=== PATIENT | female | born 1955 | race Caucasian/White ===

== ENCOUNTER 2021-09-03 17:09 | Emergency (ER) | payer MEDICARE ==
--- NOTE | 2021-09-03 21:36 | ED ---
General Adult HPI - General Chief complaint: Headache Stated complaint: Sent by DR/Headache Time Seen by Provider: 09/03/21 20:57 Source: patient, RN notes reviewed, old records reviewed Mode of arrival: ambulatory Limitations: no limitations - History of Present Illness Initial comments: 66-year-old well-appearing female alert and oriented 4, presents to the emergency room with complaints of left temporal headache yesterday afternoon around 4:00. Patient states that she went outside for a walk and took some deep breaths and did help with the pain however she could not sleep last night his pain returned. She describes it as a bandlike pressure on the left side of her head. She denies any symptoms on the right side she denies any nausea vomiting or fevers. She states there is no visual problems. She has not had headaches in the past. She does not take any medication on a daily basis. She did contact her primary care doctor who told her to come to the emergency room for evaluation and CAT scan. -: days(s) (1) Location: head (Left temporal) Radiation: non-radiation Severity scale (1-10): 3 Quality: aching, other (Bandlike pressure) Improves with: medication (Robaxin) Worsens with: none Associated Symptoms: denies other symptoms - Related Data Allergies Allergy/AdvReac Type Severity Reaction Status Date / Time bee pollen Allergy Rash/Hives Verified 09/03/21 19:15 Review of Systems ROS Statement: Those systems with pertinent positive or pertinent negative responses have been documented in the HPI. ROS Other: All systems not noted in ROS Statement are negative. Past Medical History Past Medical History: Thyroid Disorder Past Surgical History: Tonsillectomy, Tubal Ligation Past Psychological History: No Psychological Hx Reported Smoking Status: Never smoker Past Alcohol Use History: Daily Past Drug Use History: None Reported General Exam Limitations: no limitations General appearance: alert, in no apparent distress Head exam: Present: atraumatic, normocephalic, normal inspection Eye exam: Present: normal appearance, PERRL, EOMI. Absent: scleral icterus, conjunctival injection, periorbital swelling ENT exam: Present: normal exam, normal oropharynx, mucous membranes moist Neck exam: Present: normal inspection, full ROM. Absent: tenderness, meningismus, lymphadenopathy, thyromegaly Respiratory exam: Present: normal lung sounds bilaterally. Absent: respiratory distress, wheezes, rales, rhonchi, stridor Cardiovascular Exam: Present: regular rate, normal rhythm, normal heart sounds. Absent: systolic murmur, diastolic murmur, rubs, gallop, clicks Neurological exam: Present: alert, oriented X3, CN II-XII intact, normal gait Expanded Patient oriented to: Present: person, place, time Speech: Present: fluid speech Cranial nerves: EOM's Intact: Normal, Gag Reflex: Normal, Tongue Deviation: Normal Cerebellar function: Finger to Nose: Normal, Heel to [place]: Normal Eye Response: (4) open spontaneously Motor Response: (6) obeys commands Verbal Response: (5) oriented [place] Total: 15 Psychiatric exam: Present: normal affect, normal mood, anxious Skin exam: Present: warm, dry, intact, normal color. Absent: rash Course Vital Signs 09/03/21 09/03/21 09/04/21 19:10 21:46 00:13 Temperature 97.4 F L 98.1 F Pulse Rate 72 78 75 Respiratory 19 20 20 Rate Blood Pressure 123/79 129/68 124/70 O2 Sat by Pulse 96 98 98 Oximetry Medical Decision Making - Medical Decision Making Patient has no focal neurological deficits. She is ambulatory with a steady gait. She was offered pain medication and refused. CT brain shows no mass lesions or intracranial hemorrhage. Patient directed to follow up with her primary care doctor return to the emergency room with any new or worsening symptoms. Patient is agreeable to this plan of care. Discussed this case with Dr. Conteh Disposition Clinical Impression: Headache Disposition: HOME SELF-CARE Condition: Good Instructions (If sedation given, give patient instructions): Acute Headache (ED) Additional Instructions: Continue to take Tylenol and or Motrin as needed for pain. If Robaxin worked please continue the Robaxin. Follow-up with your primary care doctor this week. Return to the emergency room with any new or worsening symptoms including increased headache, numbness, tingling or weakness. Is patient prescribed a controlled substance at d/c from ED?: No Referrals: Latrice Quintero MD [Primary Care Provider] - 1-2 days Time of Disposition: 23:56
[2021-09-03 21:49] VITALS: RESP 20
--- NOTE | 2021-09-03 23:34 | CT ---
EXAMINATION TYPE: CT brain wo con DATE OF EXAM: 09/03/2021 COMPARISON: None INDICATION: pain DLP: 1088.4 mGycm, Automated exposure control for dose reduction was used. CONTRAST: None CT of the brain is performed utilizing 3 mm thick sections through the posterior fossa and 3 mm thick sections through the remaining calvarium. Study is performed within 24 hours of arrival to the hosp [facility]. No abnormal hyperdensity is present to suggest an acute intracranial hemorrhage. No mass lesion is evident. No acute infarcts are evident. Ventricles and sulci are appropriate for the patient age. Paranasal sinuses and mastoid air cells within the [id number] are clear. IMPRESSIONS: 1. Normal CT Brain
[2021-09-04 00:14] VITALS: BP 124/70; PULSE 75; TEMP 98.1
== END 2021-09-04 00:14 | disposition home or self-care (01) ==
LOC: EC 17:09
DX: R51.9 Headache, unspecified (principal); Z91.018 Allergy to other foods
CPT/HCPCS: 70450; 99284